=== PATIENT | female | born 2000 | race Caucasian/White ===

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

== ENCOUNTER 2020-04-13 04:47 | Emergency (ER) | payer OTHER ==
[~2020-04-13 04:47] MED LIST: AUGMENTIN 875-1 EACH PO; BACTRIM DS TAB1 EACH PO; MACROBID 100 M100 MG PO; NORCO 5-325 TA1 EACH PO; TORADOL 10 MG T10 MG PO; ZOFRAN ODT 4 MG4 MG PO; ZOFRAN4 MG PO
[2020-04-13 05:24] LABS: HEMOGLOBIN 14.9 gm/dl (12.3-15.3); RED BLOOD COUNT 5.11 M/UL (4.00-5.10); WHITE BLOOD COUNT 9.7 K/UL (4.5-11.0)
[2020-04-13 05:51] LABS: BUN/CREATININE RATIO 17 (0-10)
[2020-04-13] MEDS ORDERED: ZOFRAN ODT 4 MG4 MG PO (08:47)
== END 2020-04-13 10:12 | disposition home or self-care (01) ==
LOC: ER1 04:47
PROVIDERS: Emergency Medicine
DX: R10.32 Left lower quadrant pain (principal); M54.9 Dorsalgia, unspecified; R11.2 Nausea with vomiting, unspecified; R22.41 Localized swelling, mass and lump, right lower limb; Z90.49 Acquired absence of other specified parts of digestive tract; Z87.42 Personal history of other diseases of the female genital tract
CPT/HCPCS: 36415; 80053; 81001; 83690; 84703; 85025; 96374; 96375; 99284; J1885; J2270; J2405; Q9967

== ENCOUNTER 2021-07-02 01:32 | Emergency (ER) | payer OTHER ==
[2021-07-02 02:59] LABS: HEMOGLOBIN 13.8 gm/dl (12.3-15.3); RED BLOOD COUNT 4.82 M/UL (4.00-5.10); WHITE BLOOD COUNT 4.1 K/UL (4.5-11.0)
[2021-07-02 03:47] LABS: BUN/CREATININE RATIO 16 (0-10)
== END 2021-07-02 05:59 | disposition home or self-care (01) ==
LOC: ER1 01:32
PROVIDERS: Physician Assistant
DX: U07.1 COVID-19 (principal); F17.290 Nicotine dependence, other tobacco product, uncomplicated
CPT/HCPCS: 71045; 80048; 85025; 93005; 99284; U0002